=== PATIENT | male | born 1945 | race Asian ===

== ENCOUNTER → 2023-03-28 08:10 | Outpatient (CLI) | payer MEDICARE, SELFPAY ==
--- NOTE | 2023-03-28 08:13 | DI.NM.S_ITS ---
PROCEDURE: NM BONE SCAN WHOLE BODY RADIOPHARMACEUTICAL: 21.3 mCi Tc-99m MDP IV. INDICATIONS: LUNG CANCER STAGING TECHNIQUE: Delayed whole-body scintigrams were obtained approximately 3-4 hours after intravenous injection of radiotracer. Anterior and posterior views were acquired from vertex to feet. COMPARISON: None. FINDINGS: There are innumerable foci of abnormal activity involving the cervical, thoracic and lumbar spine, sacrum, sternum, scapulae bilaterally, multiple ribs bilaterally, bony pelvis, proximal right humerus and femurs bilaterally, consistent with extensive osseous metastatic disease. Increased activity in the right maxilla is nonspecific. IMPRESSION: Extensive osseous metastatic disease. Dictated by: Pedro Perez M.D. on 03/28/2023 at 12:34 Approved by: Pedor Perez M.D. on 03/28/2023 at 12:48
== END ==
PROVIDERS: Referring Provider Internal Medicine Hematology & Oncology; Visit Provider Internal Medicine Hematology & Oncology
DX: C34.32 Malignant neoplasm of lower lobe, left bronchus or lung (principal); C79.51 Secondary malignant neoplasm of bone
CPT/HCPCS: 78306; A9503